=== PATIENT | female | born 1975 | race Caucasian/White ===

== ENCOUNTER 2021-09-24 04:02 | Inpatient (IN) ==
--- NOTE | 2021-09-24 04:27 | Emergency Department Note ---
History of Present Illness General Chief complaint: Illness Stated complaint: GENERALIZED ILLNESS, SHORT OF BREATH, NAUSEA Time Seen by Provider: 09/24/21 04:10 Source: patient History of Present Illness Maximum Pain Intensity: 8 46-year-old female presents emergency department states 2-day history of vomiting chest pain generalized illness and weakness. Patient states 2 days ago she woke up with vomiting she now is short of breath has lower chest and upper abdominal pain. Patient is on Subutex. Patient called EMS due to continued chest pain shortness of breath and generalized weakness. Patient is a very poor historian as to her presentation. Patient denies cardiac history. Home Medications Medication Instructions Recorded Confirmed Type buprenorphine 8 mg-naloxone 2 mg 1 film BUCCAL DAILY PRN 07/04/21 08/16/21 History sublingual film (Suboxone) citalopram 20 mg tablet 20 mg PO HS 07/10/21 08/16/21 History multivitamin 1 tab PO DAILY 07/10/21 08/16/21 History prednisone 10 mg tablet See Rx Instructions PO DAILY #20 08/16/21 08/16/21 Rx tab triamcinolone acetonide 0.1 % 1 applic TOPICAL DAILY #15 g 08/16/21 08/16/21 Rx topical cream Allergies Allergy/AdvReac Type Severity Reaction Status Date / Time No Known Allergies Allergy Verified 08/16/21 12:00 Past Med/Surg History Medical History Anemia Anxiety and depression Arthritis Carpal tunnel syndrome Episode of syncope 2013 UNSURE OF REASON History of cardiac murmur NO CARDS Hx of seizure disorder ? TYPE>ONLY A CHILD Jaw clicking Thyroid disease NO MEDS (PT UNSURE OF DETAILS) Surgical History History of back surgery "HARDWARE IN BACK FOR SCOLIOSIS" History of section X 2 History of tooth extraction Family History Mother Lung cancer Other No family history of adverse response to anesthesia Denies family history of Ovarian cancer Prostate cancer Myocardial infarction Breast cancer Colorectal cancer Social History Smoking Status: Current every day smoker Tobacco Type: Cigarettes Age Started Using Tobacco: 14; Cigarettes Per Day: 6-7 CIG DAILY *ADVISED; Second Hand Exposure: No; Hx Alcohol Use: No Hx Substance Use: Yes Last Used Substance Other:: LAST USED OVER 1 MONTH AGO "I QUIT" *ADVISED Preferred Language: Azerbaijani Communication Ability: Effective Visual Impairment: No Limitations Hearing Ability: Normal [employer] Operator Required: No Beliefs That Will Affect Care: None marital status: Single Current Living Situation: Significant Other current occupational status: employed Feels Safe at Home: Yes Childhood Exposure to Second-Hand Smoke: Yes Dental Care, Regularly: No Physical Activity Frequency: Does not Exercise Seatbelt Use: always Sunscreen Use: No Assistive Devices: Denture - Upper and Glasses Review of Systems A total of 10 systems reviewed and were otherwise negative Constitutional: + chills Respiratory: + dyspnea Cardiovascular: + chest pain Gastrointestinal: + abdominal pain, + nausea and + vomiting Genitourinary (Female): no urinary frequency Musculoskeletal: no back pain Endocrine: + fatigue Physical Exam Vital Signs Vital Signs - 24 hr 09/24/21 04:03 09/24/21 04:36 09/24/21 05:07 Temperature 36.5 C Temperature Source Oral Pulse Rate 102 H 96 H Pulse Rate [Finger] 98 H Pulse Rhythm Regular Pulse Rhythm [Finger] Pulse Strength [Finger] Respiratory Rate 16 25 H 22 Respiratory Effort / Characteristics Non-Labored Non-Labored Respiratory Depth Normal Normal Respiratory Pattern Regular Regular Blood Pressure 147/110 H Blood Pressure [Left Arm] 157/115 H Blood Pressure Mean 122 Blood Pressure Mean [Left Arm] 129 Blood Pressure Position Sitting Blood Pressure Position [Left Arm] Sitting Pulse Oximetry 85 L 93 96 Oxygen Delivery Method Room Air Nasal Cannula Nasal Cannula Oxygen Flow Rate 6 6 Sepsis Recent Fever Within 48 Hours No Sepsis New/Unexplained Change in Mental Status No Sepsis Action Taken by Nursing No Action Required 09/24/21 05:57 Temperature Temperature Source Pulse Rate Pulse Rate [Finger] 94 H Pulse Rhythm Pulse Rhythm [Finger] Regular Pulse Strength [Finger] Normal Respiratory Rate 22 Respiratory Effort / Characteristics Non-Labored Spontaneous Respiratory Depth Normal Respiratory Pattern Regular Blood Pressure Blood Pressure [Left Arm] 151/108 H Blood Pressure Mean Blood Pressure Mean [Left Arm] 122 Blood Pressure Position Blood Pressure Position [Left Arm] Sitting Pulse Oximetry 93 Oxygen Delivery Method Nasal Cannula Oxygen Flow Rate 6 Sepsis Recent Fever Within 48 Hours Sepsis New/Unexplained Change in Mental Status Sepsis Action Taken by Nursing VITAL SIGNS - Vital signs and nursing notes were reviewed. GENERAL -46-year-old female appearing her stated age who is in no acute distress. Slow to communicate and answer questions SKIN - Without rashes. Appears mildy ashen HEAD - NC/AT. EYES - PERRL with EOMI bilaterally. Sclera anicteric. Palpebral conjunctiva pink and moist with no injection noted. EARS - No deformities of external structures noted on gross examination bilaterally. No pain elicited with palpation of the tragus bilaterally. External auditory canals without discharge or otorrhea. Tympanic membranes pearly boogie without retraction or bulging. No fluid or purulent material visualized behind the TM. Handle of malleus, umbo, cone of light, pars tensa/flaccid all easily visualized. NOSE - Midline and without cyanosis. No epistaxis or purulent drainage noted. Septum midline without deviation or septal hematoma noted. MOUTH/OROPHARYNX - Without perioral cyanosis. Buccal mucosa pink and moist NECK - Neck with FROM. Supple LUNGS - Chest wall symmetric without accessory muscle use, intercostals retractions, or central cyanosis. Normal vesicular breath sounds CTA B/L. No wheezes, rales, or rhonchi appreciated. CARDIAC - RRR with S1/S2. No murmur, rubs, or gallops appreciated. Mild tenderness low sternum ABDOMEN - Abdominal contour soft without pulsations or visible masses. BS normoactive all four quadrants. No palpable masses, hepatosplenomegaly, or ascites noted. Mild tenderness in the epigastrium Back : Midline surgical scar EXTREMITIES - No clubbing or peripheral cyanosis. No pretibial edema present. +5/5 strength noted in UE/LE bilaterally. NEUROLOGIC - Cranial nerves II through XII grossly intact. Sensory intact to light touch throughout. PSYCH - A&Ox3 and cooperates fully with examiner. Alert but slow to respond to answer questions fully. Course Reevaluation(s) Reevaluation #1: Repeat examination at 5:39 AM the patient continues to complain of sharp centralized low sternal and upper abdominal pain with shortness of breath. Patient is on 6 L of oxygen with a pulse oximetry of 93 to 96%. Patient was given IV morphine, aspirin. CT is being reread of the chest for pulmonary embolism. Patient found to have an elevated D-dimer as well as an elevated troponin. Patient states to me with her significant other at bedside that initially it started out as vomiting and then significant lower abdominal chest pain with associated shortness of breath. Reevaluation #2: 0Patient continues to complain of pain, the case was discussed with the [facility] hospitalist for admission at 615, requested surgery was consulted, they will likely consult cardiology, we are waiting for the delta troponin as per initial 1 is positive, CT of the abdomen shows possibly cholecystitis, she was started on Zosyn, the case was also discussed with Aakash from surgery. Administered Medications Discontinued Medications Aspirin (Aspirin 81 Mg Chew) 324 mg PO NOW STA Stop: 09/24/21 05:31 Last Admin: 09/24/21 05:35 Dose: 324 mg Documented by: [id number] Ioversol (Optiray 320 125ml) 125 ml IV ONCE ONE Stop: 09/24/21 05:06 Last Admin: 09/24/21 05:06 Dose: 117 ml Documented by: [id number] Morphine Sulfate (Morphine Sulfate 4 Mg/Ml 1 Ml Carp\\Vial) 4 mg IV NOW STA Stop: 09/24/21 05:31 Last Admin: 09/24/21 05:36 Dose: 4 mg Documented by: [id number] Morphine Sulfate (Morphine Sulfate 2 Mg/Ml Carp) 2 mg IV NOW STA Stop: 09/24/21 06:25 Last Admin: 09/24/21 06:33 Dose: 2 mg Documented by: [id number] Ondansetron HCl (Ondansetron Inj 2 Mg/Ml 2 Ml Vial) 4 mg IV NOW STA Stop: 09/24/21 04:42 Last Admin: 09/24/21 04:45 Dose: 4 mg Documented by: [id number] Critical Care Time Critical Care Time: Yes Total Critical Care Time: 35 Critical care time is 35 minutes; chart review, multiple re-evals, discussion with family, discussion with hospitalist team; pt with possibility of cardiorespiratory compromise; discussion with surgical team Medical Decision Making Medical Records Attestation: I reviewed the patient's medical records. Home Medications Current Medication List: was personally reviewed by me Laboratory Data Attestation: I reviewed the patient's lab results. Result diagrams: 09/24/21 04:33 09/24/21 04:33 Lab Results 09/24/21 09/24/21 09/24/21 Range/Units 04:33 04:33 04:33 WBC 14.98 H (4.8-10.8) K/uL RBC 4.82 (4.2-5.4) M/uL Hgb 16.0 (12.0-16.0) g/dL Hct 45.6 (37-47) % MCV 94.6 (80-100) fL MCH 33.2 (25-34) pg MCHC 35.1 (32-36) g/dL RDW Std Deviation 49.3 H (36.4-46.3) fL RDW Coeff of Mark 14.3 (11.5-14.5) % Plt Count 260 (130-400) K/uL MPV 10.0 (7.4-10.4) fL Immature Gran % (Auto) 0.3 % Neut % (Auto) 79.7 % Lymph % (Auto) 11.3 % [place] % (Auto) 8.5 % Eos % (Auto) 0.1 % Baso % (Auto) 0.1 % Neut # (Auto) 11.93 H (1.4-6.5) K/uL Lymph # (Auto) 1.69 (1.2-3.4) K/uL [place] # (Auto) 1.28 H (0.11-0.59) K/uL Eos # (Auto) 0.01 (0-0.5) K/uL Baso # (Auto) 0.02 (0-0.2) K/uL Immature Gran # (Auto) 0.05 H (0.00-0.02) K/uL PT 11.3 (9.0-12.0) Seconds INR 1.1 (0.9-1.1) APTT 27.9 (21.0-31.0) Seconds PTT Ratio 1.0 D-Dimer 1130 H* (0-500) ug/L FEU Sodium 133 L (136-145) mmol/L Potassium 4.1 (3.5-5.1) mmol/L Chloride 101 (98-107) mmol/L Carbon Dioxide 22 (21-32) mmol/L Anion Gap 10 (3-11) BUN 13 (6-23) mg/dl Creatinine 0.65 (0.6-1.2) mg/dl Est Cr Clr Drug Dosing 101.6 ml/min Est GFR ( Amer) 122.5 ml/min Est GFR (Non-Af Amer) 105.7 ml/min BUN/Creatinine Ratio 20.0 (10-20) Glucose 169 H (70-99(Fasting)) mg/dl Calcium 10.0 (8.5-10.1) mg/dl Total Bilirubin 0.6 (0.2-1.0) mg/dl AST 46 H (13-39) U/L ALT 26 (7-52) U/L Alkaline Phosphatase 82 (34-104) U/L Troponin I High Sens 1904.5 H* (0-14) pg/ml Total Protein 7.3 (6.0-8.3) gm/dl Albumin 4.4 (3.4-5.0) gm/dl Globulin 2.9 (2.5-4.0) gm/dl Albumin/Globulin Ratio 1.5 (0.9-2) Lipase 7 L (11-82) U/L SARS-CoV-2, RNA, NAAT (NEGATIVE) 09/24/21 Range/Units 04:41 WBC (4.8-10.8) K/uL RBC (4.2-5.4) M/uL Hgb (12.0-16.0) g/dL Hct (37-47) % MCV (80-100) fL MCH (25-34) pg MCHC (32-36) g/dL RDW Std Deviation (36.4-46.3) fL RDW Coeff of Mark (11.5-14.5) % Plt Count (130-400) K/uL MPV (7.4-10.4) fL Immature Gran % (Auto) % Neut % (Auto) % Lymph % (Auto) % [place] % (Auto) % Eos % (Auto) % Baso % (Auto) % Neut # (Auto) (1.4-6.5) K/uL Lymph # (Auto) (1.2-3.4) K/uL [place] # (Auto) (0.11-0.59) K/uL Eos # (Auto) (0-0.5) K/uL Baso # (Auto) (0-0.2) K/uL Immature Gran # (Auto) (0.00-0.02) K/uL PT (9.0-12.0) Seconds INR (0.9-1.1) APTT (21.0-31.0) Seconds PTT Ratio D-Dimer (0-500) ug/L FEU Sodium (136-145) mmol/L Potassium (3.5-5.1) mmol/L Chloride (98-107) mmol/L Carbon Dioxide (21-32) mmol/L Anion Gap (3-11) BUN (6-23) mg/dl Creatinine (0.6-1.2) mg/dl Est Cr Clr Drug Dosing ml/min Est GFR ( Amer) ml/min Est GFR (Non-Af Amer) ml/min BUN/Creatinine Ratio (10-20) Glucose (70-99(Fasting)) mg/dl Calcium (8.5-10.1) mg/dl Total Bilirubin (0.2-1.0) mg/dl AST (13-39) U/L ALT (7-52) U/L Alkaline Phosphatase (34-104) U/L Troponin I High Sens (0-14) pg/ml Total Protein (6.0-8.3) gm/dl Albumin (3.4-5.0) gm/dl Globulin (2.5-4.0) gm/dl Albumin/Globulin Ratio (0.9-2) Lipase (11-82) U/L SARS-CoV-2, RNA, NAAT NEGATIVE (NEGATIVE) Imaging Data My Impression: Chest x-ray interpreted by me scoliosis thoracic orthopedic hardware present no obvious infiltrates no free air Radiologist's Impression: CT ABDOMEN/PELVIS With Contrast: Please see separatelydictated CT chest for additional findings. Distention of the gallbladder with cholelithiasis and pericholecystic fluid. Additional mild periportal edema. Findings maybe due to cholecystitis. Consider HIDAimaging if there is further concern. No other acute findingswithin the abdomen or pelvis. Radiologist: Ryan Rodriguez MD CT chest is negative for PE per radiology 5:57 AM ECG Data Attestation: I personally reviewed and interpreted this ECG as follows: Additional Comments: EKG interpreted by me normal sinus rhythm rate of 98 poor R wave progression in the precordium appears to be global T wave inversions that are nonspecific normal axis Hg #2 repeated due to clinical condition patient has normal sinus rhythm with a rate of 96 poor R wave progression in the precordium, continues to have T wave inversions anterolaterally, normal axis no obvious ST segment elevation or depression as interpreted by me MDM Narrative Medical decision making differential diagnosis includes pulmonary embolism, acute coronary syndrome, acute mi, perforated viscus, pneumonia, pancreatitis, derangement dehydration Review of labs elevated D-dimer however CT angio states no PE, elevated troponin, T wave inversions, will trend troponin, patient was given aspirin. We will currently hold off on IV heparin until further guidance as the patient may also have cholecystitis on CT abdomen pelvis and patient was started on IV Zosyn; consult hospitalist, consult to surgery; admit Impression & Plan Chest pain, Elevated troponin, Elevated d-dimer, Acute cholecystitis Discharge Plan Visit Data Chief Complaint: Illness Stated Complaint: GENERALIZED ILLNESS, SHORT OF BREATH, NAUSEA ED Provider: Refugio Ventura Discharge Problem: Chest pain, Elevated troponin, Elevated d-dimer, Acute cholecystitis Patient Disposition: Being Evaluated by Hospitalist Forms Stand Alone Forms: My [facility] Prescriptions Prescriptions: No Action buprenorphine-naloxone [Suboxone] 8-2 mg film 1 film buccal DAILY PRN (Reason: Pain) RF: 0 prednisone 10 mg tablet See Rx Instructions PO DAILY Qty: 20 RF: 0 triamcinolone acetonide 0.1 % cream 1 applic topical DAILY Qty: 15 RF: 1 multivitamin Tablet 1 tab PO DAILY RF: 0 citalopram 20 mg tablet 20 mg PO HS RF: 0 Referrals Referrals: Chloe Cuevas MD [Primary Care Provider] -
[2021-09-24] MEDS ORDERED: ONDANSETRON INJ 2 MG/ML 2 ML VIAL IV STA (04:41)
[2021-09-24 04:47] LABS: Basophils # (auto) 0.02 K/uL (0-0.2); Basophils % (auto) 0.1 %; Eosinophils # (auto) 0.01 K/uL (0-0.5); Eosinophils % (auto) 0.1 %; Hematocrit (blood only) 45.6 % (37-47); Immature Granulocytes # (auto) 0.05 K/uL (0.00-0.02); Immature Granulocytes % (auto) 0.3 %; Lymphocytes # (auto) 1.69 K/uL (1.2-3.4); Lymphocytes % (auto) 11.3 %; Mean Corpuscular Hemoglobin 33.2 pg (25-34); Mean Corpuscular Hgb Conc 35.1 g/dL (32-36); Mean Corpuscular Volume 94.6 fL (80-100); Monocytes # (auto) 1.28 K/uL (0.11-0.59); Monocytes % (auto) 8.5 %; Neutrophils # (auto) 11.93 K/uL (1.4-6.5); Neutrophils % (auto) 79.7 %; Platelet Count 260 K/uL (130-400); RDW Coefficient of Variation 14.3 % (11.5-14.5); RDW Standard Deviation 49.3 fL (36.4-46.3); Red Blood Count 4.82 M/uL (4.2-5.4); White Blood Count 14.98 K/uL (4.8-10.8)
[2021-09-24] MEDS ORDERED: OPTIRAY 320 125ml IV ONE (05:05)
[2021-09-24 05:07] LABS: INR 1.1 (0.9-1.1); Partial Thromboplastin Time 27.9 Seconds (21.0-31.0); Prothrombin Time 11.3 Seconds (9.0-12.0)
[2021-09-24 05:11] LABS: D Dimer 1130 ug/L FEU (0-500)
[2021-09-24 05:14] LABS: Albumin Globulin Ratio 1.5 (0.9-2); Albumin Level 4.4 gm/dl (3.4-5.0); Bilirubin,Total 0.6 mg/dl (0.2-1.0); Creatinine Clr Calc Pharmacy 101.6 ml/min; Est GFR (African American) 122.5 ml/min; Est GFR (Non-African American) 105.7 ml/min; Globulin 2.9 gm/dl (2.5-4.0); Potassium 4.1 mmol/L (3.5-5.1); Total Protein 7.3 gm/dl (6.0-8.3)
[2021-09-24 05:20] LABS: Troponin I High Sensitivity 1904.5 pg/ml (0-14)
[2021-09-24] MEDS ORDERED: ASPIRIN 81 MG CHEW PO STA (05:30)
[2021-09-24] MEDS ORDERED: MoRPHine SULFATE 4 MG/ML 1 ML CARP\\VIAL IV STA (05:30)
[2021-09-24] MEDS ORDERED: PIPERACILLIN/TAZOBACTAM 4.5 GM/120 ML BAG IV ONE (06:07)
[2021-09-24] MEDS ORDERED: PIPERACILL/TAZOBAC CONSULT ACTIVE PRN ×2 (06:07→08:27)
[2021-09-24] MEDS ORDERED: fentaNYL citrate 100 MCG/2 ML VIAL IV STA (06:08)
[2021-09-24] MEDS ORDERED: MoRPHine SULFATE 2 MG/ML CARP IV STA (06:24)
--- NOTE | 2021-09-24 06:31 | Surgery Consultation ---
Date of Consultation September 24, 2021 Assessment & Plan (1) Cholecystitis: The patient is being admitted by the medical service: -it appears as though the pt. may be suffering from acute cholecystitis -keep pt. npo -provide analgesics -provide antiemetics -hydrate with IVF -continue abx.--she has received zosyn in the ED -follow serial labs I discussed with the medical service: -due to the abnormal EKG and elevated troponin they are planning an trending the patient's cardiac enzymes and obtaining an echo to evaluate for -as the pt. was SOB and her pulse ox was noted to be low, there remains a concern that the patiemt may be suffering from a PE; they have placed the patient on an empiric heparin drip and ordered an echo as noted above Decision about cholecystectomy will be determined once further evaluation of her CP and SOB/hypoxia has vika completed Supervising Physician Co-Signing Physician Notes Dr. Wheatley suspect the patient has acute cholecystitis I do not think we need a HIDA scan Will await her medical work-up Likely proceed with laparoscopic cholecystectomy in the next 24 to 48 hours Unless medical work-up shows serious problems Would place the patient on IV antibiotics History of Present Illness Reason for Consultation: Abdominal pain History of Present Illness This is a 46-year-old female who presented to [facility] secondary to nonspecific abdominal pain as well as pleuritic chest pain that has been present for approximately 2 to 3 days. Patient notes that she has been having abdominal pain in the epigastric and right upper quadrant with associated nausea & vomiting. She notes that at times it is unrelated to meals but at other times the pain occurs approximately 20 or 30 minutes after eating. She denies any hematemesis. She denies any diarrhea. She also denies any fevers, shakes, chills. She has had prior abdominal surgeries in the form of 2 C- sections. In addition the patient reports that the abdominal pain tends to radiate up into her chest. She notes that she is somewhat short of breath with difficulty taking a deep breath and she notes some substernal chest pain as well. Today in the emergency department the patient had labs and imaging which I independently reviewed. She did have a CT scan abdomen pelvis that showed a distended gallbladder with some pericholecystic fluid and gallstones. A CT scan of the chest that did not show any pulmonary emboli. CBC revealed white blood cell count was 14.9. Hemoglobin, hematocrit, and platelet count were within the normal range. Chemistry profile showed sodium was 133. Potassium, BUN, and creatinine were normal. Her bilirubin, alkaline phosphatase and ALT were normal. There was a slight elevation of her AST at 46. Coagulation studies showed an elevated D-dimer at 1130. Her troponin was elevated at 1904. 8 COVID test was noted to be negative. EKG showed inverted T waves in leads I, 2, V3 through V6. At the time of my interview the patient appeared uncomfortable and contiued to have SOB and abdominal pain. Allergies Allergy/AdvReac Type Severity Reaction Status Date / Time No Known Allergies Allergy Verified 08/16/21 12:00 Home Medications Medication Instructions Recorded Confirmed Type citalopram 20 mg tablet 20 mg PO HS 07/10/21 09/24/21 History multivitamin 1 tab PO HS 07/10/21 09/24/21 History buprenorphine 8 mg-naloxone 2 mg 1.5 tab SUBLINGUAL QAM 09/24/21 09/24/21 History sublingual tablet Patient History Medical History Anemia Anxiety and depression Arthritis Carpal tunnel syndrome Episode of syncope 2012 UNSURE OF REASON History of cardiac murmur NO CARDS Hx of seizure disorder ? TYPE>ONLY A CHILD Jaw clicking Thyroid disease NO MEDS (PT UNSURE OF DETAILS) Surgical History History of back surgery "HARDWARE IN BACK FOR SCOLIOSIS" History of section X 2 History of tooth extraction Family History Mother Lung cancer Other No family history of adverse response to anesthesia Denies family history of Ovarian cancer Prostate cancer Myocardial infarction Breast cancer Colorectal cancer Social History Smoking Status: Current every day smoker Tobacco Type: Cigarettes Age Started Using Tobacco: 14; Cigarettes Per Day: 6-7 CIG DAILY *ADVISED; Second Hand Exposure: No; Hx Alcohol Use: No Hx Substance Use: Yes Last Used Substance Other:: LAST USED OVER 1 MONTH AGO "I QUIT" *ADVISED Preferred Language: Uzbek Communication Ability: Effective Visual Impairment: No Limitations Hearing Ability: Normal [place] Required: No Beliefs That Will Affect Care: None marital status: Single Current Living Situation: Significant Other current occupational status: employed Feels Safe at Home: Yes Childhood Exposure to Second-Hand Smoke: Yes Dental Care, Regularly: No Physical Activity Frequency: Does not Exercise Seatbelt Use: always Sunscreen Use: No Assistive Devices: Denture - Upper and Glasses Review of Systems Constitutional: no fever and no chills Eyes: no diplopia Ear, Nose, Mouth, Throat: no ear pain Respiratory: + dyspnea; no cough Cardiovascular: no chest pain Gastrointestinal: + abdominal pain, + nausea and + vomiting Genitourinary: no dysuria Musculoskeletal: + back pain (chronic) Integumentary: no rash Neurologic: no localized weakness Physical Exam Constitutional: well developed, well nourished and + acute distress appears unconfortable Eyes: no conjunctival abnormality Neck: trachea midline Respiratory: + labored breathing; does not use accessory muscles Cardiovascular: Rate/Rhythm: regular rate and regular rhythm Gastrointestinal (Abdomen): soft without distention, marked tenderness with palpation in RUQ Musculoskeletal: no calf tenderness Skin: no rashes Neurologic: moves all extremities Psychiatric: A+Ox3, euthymic affect Results & Data ([facility]) Vital Signs (Past 12 Hours) Vital Signs Temp Pulse Pulse Resp BP BP Pulse Ox 09/24/21 05:57 94 H 22 151/108 H 93 09/24/21 05:07 98 H 22 157/115 H 96 09/24/21 04:36 96 H 25 H 93 09/24/21 04:03 36.5 C 102 H 16 147/110 H 85 L PG Care Time/CCT Total # of Minutes Spent Total Time Spent with Patient: Total time spent is greater than 50% in coordination of care (as documented) at patient's floor/unit and/or counseling patient: Coding Level of Care Code 94657 Inpt Consult Level 5 Diagnoses Cholecystitis K81.9
[2021-09-24] MEDS ORDERED: SODIUM CHLORIDE 0.9% 1000ML 2,000 ML IV ONE (06:34)
[2021-09-24] MEDS ORDERED: Heparin IV Adult Wt-Based Standard WITH Bolus Protocol IV STA (06:46)
--- NOTE | 2021-09-24 06:48 | History & Physical Report ---
Date of Service September 24, 2021 Assessment & Plan (1) Chest pain: Plan: 46yo female presents with two days of nausea, vomiting, abdominal pain and chest discomfort. Elevation of HS troponin as well as diffuse TWI present on EKG. Chest pain is positional and pleuritic - possible myopericarditis. ASA given in ER. -Admit to PCU -Trend HS-trop q 6 hours -Check ESR and CRP -Check 2D echo -Cardiology consultation appreciated -Will initiate heparin gtt for now - await echo results for WMA, effusion, etc -Continue Oxygen - incentive spirometry - patient may need HFNC -Morphine PRN pain (2) Elevated troponin: Plan: As above, repeat HS-troponin pending. Story most fitting with myopericarditis - EKG changes could also be secondary to acute cholecystitis -Continue to trend -Check 2D echo -Telemetry monitoring (3) Acute cholecystitis: Plan: Afebrile. HD stable -Check RUQUS -Zosyn -General Surgery consultation appreciated -Morphine PRN pain -Zofran PRN nausea (4) Generalized anxiety disorder: Plan: Chronic. Stable -Continue Citalopram (5) Chronic pain: Plan: With acute pain - patient received Morphine in the ER with minimal improvement -Continue Subutex -Pain control as above Plan: F/E/N - LR at 100mL/hr x 2 liters, monitor electroltyes and replete as needed, NPO for now Ppx - Heparin gtt as above Code - Full Dispo - Admit to PCU History of Present Illness Chief Complaint: nausea, vomiting, abdominal pain, chest pain Primary Care Provider: Chloe Cuevas MD Azra Vega is a 46yo female with history of chronic back pain on Subutex, Depression/Anxiety presenting with two days of nausea with non-bloody/non-bilious vomiting, epigastric and RUQ abdominal pain as well as left sided chest pain. Symptoms began two days ago. No sick contacts. Her chest pain is located on the left chest. 7/10 in severity, sharp and stabbing. Pleuritic and positional - worse with laying flat and relieved with sitting upright. She has associated SOB as well as diaphoresis. Also with epigastric and RUQ abdominal pain, progressively worsening over the last two days. She has intermittent nausea, often after meals. Poor oral intake Also with occasional chills but denies fever, rigors, diarrhea. Upon arrival to the ER patient hypoxic to 85% on room air. She was placed on supplemental O2 by nasal cannula with improvement. Presently on 6L saturating 93%. Complaining of significant abdominal pain. Received Morphine 4mg IV with minimal improvement. Additional workup as below - elevated Ddimer as well as HS-trop x 1. EKG with diffuse TWI ER Course: Zofran, Zosyn, ASA, Morphine Allergies Allergy/AdvReac Type Severity Reaction Status Date / Time No Known Allergies Allergy Verified 08/16/21 12:00 Home Medications Medication Instructions Recorded Confirmed Type buprenorphine 8 mg-naloxone 2 mg 1 film BUCCAL DAILY PRN 07/04/21 09/24/21 History sublingual film (Suboxone) citalopram 20 mg tablet 20 mg PO HS 07/10/21 09/24/21 History multivitamin 1 tab PO DAILY 07/10/21 09/24/21 History prednisone 10 mg tablet See Rx Instructions PO DAILY #20 08/16/21 08/16/21 Rx tab triamcinolone acetonide 0.1 % 1 applic TOPICAL DAILY #15 g 08/16/21 09/24/21 Rx topical cream Past Med/Surg History Medical History Anemia Anxiety and depression Arthritis Carpal tunnel syndrome Episode of syncope 2012 UNSURE OF REASON History of cardiac murmur NO CARDS Hx of seizure disorder ? TYPE>ONLY A CHILD Jaw clicking Thyroid disease NO MEDS (PT UNSURE OF DETAILS) Surgical History History of back surgery "HARDWARE IN BACK FOR SCOLIOSIS" History of section X 2 History of tooth extraction Family History Mother Lung cancer Other No family history of adverse response to anesthesia Denies family history of Ovarian cancer Prostate cancer Myocardial infarction Breast cancer Colorectal cancer Social History Smoking Status: Current every day smoker Tobacco Type: Cigarettes Age Started Using Tobacco: 14; Cigarettes Per Day: 6-7 CIG DAILY *ADVISED; Second Hand Exposure: No; Hx Alcohol Use: No Hx Substance Use: Yes Last Used Substance Other:: LAST USED OVER 1 MONTH AGO "I QUIT" *ADVISED Preferred Language: Urdu Communication Ability: Effective Visual Impairment: No Limitations Hearing Ability: Normal Director Educational Radio Required: No Beliefs That Will Affect Care: None marital status: Single Current Living Situation: Significant Other current occupational status: employed Feels Safe at Home: Yes Childhood Exposure to Second-Hand Smoke: Yes Dental Care, Regularly: No Physical Activity Frequency: Does not Exercise Seatbelt Use: always Sunscreen Use: No Assistive Devices: Denture - Upper and Glasses Review of Systems Review of Systems: All systems reviewed & are unremarkable except as noted in HPI & below Physical Exam Physical Exam: General: patient ill in appearance, in moderate distress secondary to abdominal pain Skin: warm, dry, intact, no rashes or lesions HEENT: NC/AT, PERRL, EOMI, anicteric sclera, conjunctiva without injection, external ear normal to inspection and nontender, nares patent, moist mucus membranes, dentition intact, no oropharyngeal lesions, neck supple, trachea midline, no LAD, no thyromegaly, no JVD Heart: +S1/S2, regular, no m/r/g, reproducible chest wall pain with palpation Lungs: patient taking shallow breaths, +crackles in bilateral bases Large scar down middle of back Abd: +BS, soft, tender in epigastric and RUQ with voluntary guarding Ext: warm, 2+ pulses in UE/LE bilaterally, no clubbing/cyanosis or edema Neuro: nonfocal, patient AA&O x 4, speech slow, no facial droop, moving all extremities on command with equal strength 5/5 Results & Data Results & Data ([facility]) Vital Signs (Past 12 Hours) Vital Signs Temp Pulse Pulse Resp BP BP Pulse Ox 09/24/21 05:57 94 H 22 151/108 H 93 09/24/21 05:07 98 H 22 157/115 H 96 09/24/21 04:36 96 H 25 H 93 09/24/21 04:03 36.5 C 102 H 16 147/110 H 85 L Laboratory Results Laboratory Results WBC 14.98 K/uL (4.8-10.8) H 09/24/21 04:33 RBC 4.82 M/uL (4.2-5.4) 09/24/21 04:33 Hgb 16.0 g/dL (12.0-16.0) 09/24/21 04:33 Hct 45.6 % (37-47) 09/24/21 04:33 MCV 94.6 fL (80-100) 09/24/21 04:33 MCH 33.2 pg (25-34) 09/24/21 04:33 MCHC 35.1 g/dL (32-36) 09/24/21 04:33 RDW Std Deviation 49.3 fL (36.4-46.3) H 09/24/21 04:33 RDW Coeff of Mark 14.3 % (11.5-14.5) 09/24/21 04:33 Plt Count 260 K/uL (130-400) 09/24/21 04:33 MPV 10.0 fL (7.4-10.4) 09/24/21 04:33 Immature Gran % (Auto) 0.3 % 09/24/21 04:33 Neut % (Auto) 79.7 % 09/24/21 04:33 Lymph % (Auto) 11.3 % 09/24/21 04:33 [place] % (Auto) 8.5 % 09/24/21 04:33 Eos % (Auto) 0.1 % 09/24/21 04:33 Baso % (Auto) 0.1 % 09/24/21 04:33 Neut # (Auto) 11.93 K/uL (1.4-6.5) H 09/24/21 04:33 Lymph # (Auto) 1.69 K/uL (1.2-3.4) 09/24/21 04:33 [place] # (Auto) 1.28 K/uL (0.11-0.59) H 09/24/21 04:33 Eos # (Auto) 0.01 K/uL (0-0.5) 09/24/21 04:33 Baso # (Auto) 0.02 K/uL (0-0.2) 09/24/21 04:33 Immature Gran # (Auto) 0.05 K/uL (0.00-0.02) H 09/24/21 04:33 PT 11.3 Seconds (9.0-12.0) 09/24/21 04:33 INR 1.1 (0.9-1.1) 09/24/21 04:33 APTT 27.9 Seconds (21.0-31.0) 09/24/21 04:33 PTT Ratio 1.0 09/24/21 04:33 D-Dimer 1130 ug/L FEU (0-500) H* 09/24/21 04:33 Sodium 133 mmol/L (136-145) L 09/24/21 04:33 Potassium 4.1 mmol/L (3.5-5.1) 09/24/21 04:33 Chloride 101 mmol/L (98-107) 09/24/21 04:33 Carbon Dioxide 22 mmol/L (21-32) 09/24/21 04:33 Anion Gap 10 (3-11) 09/24/21 04:33 BUN 13 mg/dl (6-23) 09/24/21 04:33 Creatinine 0.65 mg/dl (0.6-1.2) 09/24/21 04:33 Est Cr Clr Drug Dosing 101.6 ml/min 09/24/21 04:33 Est GFR ( Amer) 122.5 ml/min 09/24/21 04:33 Est GFR (Non-Af Amer) 105.7 ml/min 09/24/21 04:33 BUN/Creatinine Ratio 20.0 (10-20) 09/24/21 04:33 Glucose 169 mg/dl (70-99(Fasting)) H 09/24/21 04:33 Calcium 10.0 mg/dl (8.5-10.1) 09/24/21 04:33 Total Bilirubin 0.6 mg/dl (0.2-1.0) 09/24/21 04:33 AST 46 U/L (13-39) H 09/24/21 04:33 ALT 26 U/L (7-52) 09/24/21 04:33 Alkaline Phosphatase 82 U/L (34-104) 09/24/21 04:33 Troponin I High Sens 1904.5 pg/ml (0-14) H* 09/24/21 04:33 Total Protein 7.3 gm/dl (6.0-8.3) 09/24/21 04:33 Albumin 4.4 gm/dl (3.4-5.0) 09/24/21 04:33 Globulin 2.9 gm/dl (2.5-4.0) 09/24/21 04:33 Albumin/Globulin Ratio 1.5 (0.9-2) 09/24/21 04:33 Lipase 7 U/L (11-82) L 09/24/21 04:33 SARS-CoV-2, RNA, NAAT NEGATIVE (NEGATIVE) 09/24/21 04:[address] Abdomen and Pelvis with Contrast - Per STAT rad - Distention of gallbladder with cholelithiasis and pericholecystic fluid. Additional mild periportal edema. Findings may be due to cholecystitis. Consider HIDA imaging if there is further concern. No other acute findings within the abdomen or pelvis. CTA Chest - Mildly limited exam given motion artifact and lack of coronal reformatted images. No visualized pulmonary embolism within the pulmonary outflow tract or immediate proximal branches. No consolidation. ECG Additional Comments: EKG with diffuse TWI Code Status & VTE Plan VTE Prophylaxis Plan VTE Prophylaxis will be ordered: Yes PG Care Time/CCT Total # of Minutes Spent Total Time Spent with Patient: Total time spent is greater than 50% in coordination of care (as documented) at patient's floor/unit and/or counseling patient: Coding Level of Care Code 20887 Initial Inpt Care Lvl 3 Diagnoses Chest pain R07.1 Chest pain type: chest pain on breathing Elevated troponin R77.8 Acute cholecystitis K81.0 Generalized anxiety disorder F41.1 Chronic pain G89.29 (1) Chest pain Chest pain type: chest pain on breathing Qualified Code(s): R07.1 - Chest pain on breathing
[2021-09-24] MEDS ORDERED: Heparin IV Adult Wt-Based Standard WITH Bolus Protocol IV SCH (07:15)
[2021-09-24] MEDS ORDERED: HEPARIN 25000 UNIT/500 ML D5W IV ONE (07:19)
[2021-09-24] MEDS ORDERED: HEPARIN SOD (PORCINE) 1000 UNIT/ML ONE (07:20)
--- NOTE | 2021-09-24 07:37 | CT Scan Report ---
CHEST CTA for PULMONARY ARTERIES CT DOSE: HISTORY: Lower Chest Pain, eval for PE TECHNIQUE: Multiaxial CT images of the chest were performed following the intravenous administration of contrast to evaluate the pulmonary arteries. Maximal intensity projection images were also obtaine d. A dose lowering technique was utilized adhering to the principles of ALARA. COMPARISON STUDY: None. FINDINGS: Retrograde opacification of contrast within the hepatic veins. Otherwise, the visualized li omar, spleen, and adrenal glands are unremarkable. No pericardial effusion. The heart is borderline en larged. Scoliosis and thoracic spinal fusion rods are noted. No mediastinal or hilar lymphadenopathy. Normal esophagus. Normal caliber thoracic aorta. Inadequate contrast within the thoracic aorta to as sess for a dissection. Mild respiratory motion artifact. However, no definite filling defects within the pulmonary arteries to suggest a pulmonary embolus. Incomplete opacification of some of the distal subsegmental pulmonary arteries due to the timing of contrast. No acute fractures within the visuali zed osseous structures. No pneumothorax. Mild emphysema. A 3 cm bleb noted within the right lung apex . Mild central bronchovascular thickening as well as interlobular septal thickening most pronounced w ithin the lung bases. This likely represents mild pulmonary edema. There is a trace left pleural effu ji. IMPRESSION: 1. No evidence for pulmonary embolus. 2. Mild cardiomegaly with a trace left pleural effusion and interlobular septal thickening consistent with mild pulmonary edema. ACT 112: Negative or not required by law. Electronically signed by: Nilo Aggarwal M.D. 09/24/2021 7:36 AM
--- NOTE | 2021-09-24 07:38 | XRay Report ---
XR chest 1V portable HISTORY: Lower Chest Pain COMPARISON: None. FINDINGS: No pneumothorax. No pleural effusions. The cardiac silhouette is normal in size. Scoliosis and thoracic spinal fusion rods are noted. There is diffuse interstitial thickening consistent with m ild pulmonary edema. No focal lung consolidations. IMPRESSION: Mild interstitial pulmonary edema. ACT 112: Negative or not required by law. Electronically signed by: Nilo Aggarwal M.D. 09/24/2021 7:37 AM
[2021-09-24] MEDS ORDERED: NITROGLYCERIN 2% OINTMENT 30GM TUBE EXT STA (08:15)
[2021-09-24] MEDS ORDERED: BUPRENORPHINE/NALOXONE 8/2 MG TAB SL PRN (08:27)
[2021-09-24] MEDS ORDERED: HEPARIN SODIUM/DEXTROSE 25,000 UNITS/500 ML BAG IV SCH ×2 (08:27→09:30)
[2021-09-24] MEDS ORDERED: ONDANSETRON INJ 2 MG/ML 2 ML VIAL IV PRN (08:27)
[2021-09-24] MEDS ORDERED: MoRPHine SULFATE 4 MG/ML 1 ML CARP\\VIAL IV PRN (08:27)
[2021-09-24] MEDS ORDERED: HEPARIN SOD (PORCINE) 1000 UNIT/ML IV ONE (09:00)
[2021-09-24] MEDS ORDERED: Heparin IV Adult Wt-Based Low-Dose *NO* Bolus Protocol ONE (09:18)
[2021-09-24] MEDS: MoRPHine SULFATE 2 MG/ML CARP IV PRN ×5 (09:20→22:50)
[2021-09-24 09:22] LABS: C Reactive Protein 3.39 mg/dl (0-0.5); Magnesium 1.8 mg/dl (1.7-2.4); Phosphorus 2.2 mg/dl (2.5-4.9)
--- NOTE | 2021-09-24 09:23 | Communication Note ---
Date of Service: September 24, 2021 Pt admitted the same day therefore will not be billing for this encounter. Discussed with Dr Gamino - planning on cardiac catheterization. Will reduce hepa rin IV drip to low dose given this is for possible ACS. Nitro paste deferred after discussion with Dr Gamino.
--- NOTE | 2021-09-24 09:31 | Pre Anesthesia Assessment ---
Date of Service September 24, 2021 Pre Sedation Assessment Vital Signs Temp Pulse Pulse Resp BP BP Pulse Ox 09/24/21 08:44 36.8 C 86 20 108/78 95 09/24/21 08:17 78 20 100/80 94 09/24/21 05:57 94 H 22 151/108 H 93 09/24/21 05:07 98 H 22 157/115 H 96 09/24/21 04:36 96 H 25 H 93 09/24/21 04:03 36.5 C 102 H 16 147/110 H 85 L Cardiovascular + regular rhythm Respiratory + respiratory effort normal Pre-Sedation Airway Assessment Smoking Status: Current every day smoker Hx Sleep Apnea: No Hx Difficult Intubation: No Short, Thick Neck: No Thyromental Distance: > or= 3.5 Finger Breadths Oral Cavity: + WNL Mallampati Class: III ASA: ASA3 Procedure Planning Contraindications for Sedation: none Current Medications Reviewed: Yes Notes The planned sedation has been discussed with the patient. Informed Consent was obtained. I have identified the patient, determined the appropriateness of sedation and have assessed the patient immediately prior to the procedure. All medicine(s) and interventions are by my order.
--- NOTE | 2021-09-24 10:20 | Cardiology Consultation ---
Date of Consultation September 24, 2021 Assessment & Plan (1) Elevated troponin: (2) Stress-induced cardiomyopathy: 1. Stress-induced cardiomyopathy: Her symptoms of discomfort or primarily epigastric in nature and highly suggestive of non coronary etiology. However, she clearly had a cardiac injury not related to an acute coronary syndrome. This is consistent with a stress-induced cardiomyopathy or tox at [facility]. I do not believe this is a chronic finding. Her EKG and biomarker elevation are all consistent with a recent or acute event. At this point treatment is supportive in nature. We need to monitor her volume status closely and mild diuresis is likely indicated at this point. I will prescribe low-dose beta-blockade today and when the opportunity presents add Ameya inhibition. We will continue to monitor on telemetry. No indication for systemic heparinization. With regard to her planned surgery, she would certainly be at high risk for perioperative cardiac complications given her decompensated state and acute left ventricular injury Ideally, we would wait for return of her LV function before proceeding with any elective surgery. If her surgery is deemed to be emergent than will need to monitor her hemodynamics closely and be especially cautious with respect to her overall volume status. History of Present Illness Reason for Consultation: Elevated troponin, abnormal EKG Requesting Physician: Shona Attending Physician: Win Nagel MD History of Present Illness The patient is a 46-year-old woman without a known history of cardiac disease who presented with symptoms epigastric discomfort. Apparently couple of days ag o the patient had some epigastric discomfort and some pleuritic symptoms. These seem to improvement yesterday patient symptoms returned and became progressive in nature. She had nausea and vomiting. The pain was more severe. She had trouble taking deep breaths due to worsening pain. She cannot lie flat due to worsening pain. He presented to the emergency room for an evaluation. She was noted to have an abnormal EKG and elevated cardiac biomarkers. She was started on heparin infusion. She was administered narcotics with some relief of her symptoms. A surgical evaluation was performed and she is suspected to have cholecystitis as well. The patient states that she has difficulty eating. This is due to longstanding GI process and discomfort. Allergies Allergy/AdvReac Type Severity Reaction Status Date / Time No Known Allergies Allergy Verified 08/16/21 12:00 Home Medications Medication Instructions Recorded Confirmed Type citalopram 20 mg tablet 20 mg PO HS 07/10/21 09/24/21 History multivitamin 1 tab PO HS 07/10/21 09/24/21 History buprenorphine 8 mg-naloxone 2 mg 1.5 tab SUBLINGUAL QAM 09/24/21 09/24/21 History sublingual tablet Patient History Medical History Anemia Anxiety and depression Arthritis Carpal tunnel syndrome Episode of syncope 2012 UNSURE OF REASON History of cardiac murmur NO CARDS Hx of seizure disorder ? TYPE>ONLY A CHILD Jaw clicking Thyroid disease NO MEDS (PT UNSURE OF DETAILS) Surgical History History of back surgery "HARDWARE IN BACK FOR SCOLIOSIS" History of section X 2 History of tooth extraction Family History Mother Lung cancer Other No family history of adverse response to anesthesia Denies family history of Ovarian cancer Prostate cancer Myocardial infarction Breast cancer Colorectal cancer Social History Smoking Status: Current every day smoker Tobacco Type: Cigarettes Age Started Using Tobacco: 14; Cigarettes Per Day: 10; Second Hand Exposure: Yes; Hx Alcohol Use: No Hx Substance Use: Yes Last Used Substance: Just Prior to Arrival Last Used Substance Other:: LAST USED OVER 1 MONTH AGO "I QUIT" *ADVISED Preferred Language: Urdu Communication Ability: Effective Visual Impairment: No Limitations Hearing Ability: Normal Tub Washer Required: No Beliefs That Will Affect Care: None marital status: Single Current Living Situation: Spouse current occupational status: employed Feels Safe at Home: Yes Childhood Exposure to Second-Hand Smoke: Yes Dental Care, Regularly: No Physical Activity Frequency: Does not Exercise Seatbelt Use: always Sunscreen Use: No Assistive Devices: Denture - Upper, Denture - Lower and Glasses Review of Systems Review of Systems: Per HPI. Some chronic back pain. History of scoliosis. Anorexia as described above. Physical Exam Physical Exam: She is alert and oriented x3. She was in discomfort. He had difficulty lying flat. She did answer all questions appropriately. HEENT: Sclerae are anicteric. Pupils are equal and reactive to light and accommodation. Extraocular movements were intact. Neuro: Cranial nerves intact Lungs: Poor inspiratory effort. No expiratory wheezing. Cardiac: The rhythm was regular. S1 and S2 were normal. There are no murmurs on examination. The PMI was not markedly displaced on palpation. Extremities: Patient has bilateral radial pulses that are equal in intensity. There is no evidence cyanosis or clubbing. There was no evidence of significant peripheral edema bilaterally. Skin: There are no rashes noted on examination today. Results & Data ([facility]) Vital Signs (Past 12 Hours) Vital Signs Temp Pulse Pulse Resp BP BP Pulse Ox 09/24/21 08:44 36.8 C 86 20 108/78 95 09/24/21 08:17 78 20 100/80 94 09/24/21 08:00 90 09/24/21 05:57 94 H 22 151/108 H 93 09/24/21 05:07 98 H 22 157/115 H 96 09/24/21 04:36 96 H 25 H 93 09/24/21 04:03 36.5 C 102 H 16 147/110 H 85 L Laboratory Results Abnormal Lab Results 09/24/21 09/24/21 09/24/21 04:33 04:33 04:33 WBC 14.98 H RBC 4.82 Hgb 16.0 Hct 45.6 MCV 94.6 MCH 33.2 MCHC 35.1 RDW Std Deviation 49.3 H RDW Coeff of Mark 14.3 Plt Count 260 MPV 10.0 Immature Gran % (Auto) 0.3 Neut % (Auto) 79.7 Lymph % (Auto) 11.3 [place] % (Auto) 8.5 Eos % (Auto) 0.1 Baso % (Auto) 0.1 Neut # (Auto) 11.93 H Lymph # (Auto) 1.69 [place] # (Auto) 1.28 H Eos # (Auto) 0.01 Baso # (Auto) 0.02 Immature Gran # (Auto) 0.05 H ESR PT 11.3 INR 1.1 APTT 27.9 PTT Ratio 1.0 D-Dimer 1130 H* Sodium 133 L Potassium 4.1 Chloride 101 Carbon Dioxide 22 Anion Gap 10 BUN 13 Creatinine 0.65 Est Cr Clr Drug Dosing 101.6 Est GFR ( Amer) 122.5 Est GFR (Non-Af Amer) 105.7 BUN/Creatinine Ratio 20.0 Glucose 169 H Calcium 10.0 Phosphorus Magnesium Total Bilirubin 0.6 AST 46 H ALT 26 Alkaline Phosphatase 82 Troponin I High Sens 1904.5 H* C-Reactive Protein Total Protein 7.3 Albumin 4.4 Globulin 2.9 Albumin/Globulin Ratio 1.5 Lipase 7 L Procalcitonin SARS-CoV-2, RNA, NAAT 09/24/21 09/24/21 09/24/21 04:33 04:33 04:41 WBC RBC Hgb Hct MCV MCH MCHC RDW Std Deviation RDW Coeff of Mark Plt Count MPV Immature Gran % (Auto) Neut % (Auto) Lymph % (Auto) [place] % (Auto) Eos % (Auto) Baso % (Auto) Neut # (Auto) Lymph # (Auto) [place] # (Auto) Eos # (Auto) Baso # (Auto) Immature Gran # (Auto) ESR 19 PT INR APTT PTT Ratio D-Dimer Sodium Potassium Chloride Carbon Dioxide Anion Gap BUN Creatinine Est Cr Clr Drug Dosing Est GFR ( Amer) Est GFR (Non-Af Amer) BUN/Creatinine Ratio Glucose Calcium Phosphorus 2.2 L Magnesium 1.8 Total Bilirubin AST ALT Alkaline Phosphatase Troponin I High Sens C-Reactive Protein 3.39 H Total Protein Albumin Globulin Albumin/Globulin Ratio Lipase Procalcitonin SARS-CoV-2, RNA, NAAT NEGATIVE 09/24/21 09/24/21 06:35 06:35 WBC RBC Hgb Hct MCV MCH MCHC RDW Std Deviation RDW Coeff of Mark Plt Count MPV Immature Gran % (Auto) Neut % (Auto) Lymph % (Auto) [place] % (Auto) Eos % (Auto) Baso % (Auto) Neut # (Auto) Lymph # (Auto) [place] # (Auto) Eos # (Auto) Baso # (Auto) Immature Gran # (Auto) ESR PT INR APTT PTT Ratio D-Dimer Sodium Potassium Chloride Carbon Dioxide Anion Gap BUN Creatinine Est Cr Clr Drug Dosing Est GFR ( Amer) Est GFR (Non-Af Amer) BUN/Creatinine Ratio Glucose Calcium Phosphorus Magnesium Total Bilirubin AST ALT Alkaline Phosphatase Troponin I High Sens 2102.4 H* C-Reactive Protein Total Protein Albumin Globulin Albumin/Globulin Ratio Lipase Procalcitonin < 0.05 SARS-CoV-2, RNA, NAAT Diagnostic Findings Chest CTA performed did not reveal any evidence of pulmonary embolus. There was a suggestion of mild pulmonary edema. CTA suggested mild pulmonary edema. Echocardiogram demonstrated severely reduced LV systolic function with ejection fraction in the range of 20%. She had relative sparing of the apical and basal segments with the mid ventricle being akinetic to dyskinetic. Mild dilation of left ventricle. Coronary angiography performed this morning revealed normal coronaries but elevated left ventricular end-diastolic pressure. ECG Additional Comments: Normal sinus rhythm with diffuse T-wave inversions. PG Care Time/CCT Total # of Minutes Spent Total Time Spent with Patient: Total time spent is greater than 50% in coordination of care (as documented) at patient's floor/unit and/or counseling patient: Coding Level of Care Code 18353 Inpt Consult Level 5 Diagnoses Elevated troponin R77.8 Stress-induced cardiomyopathy I51.81
[2021-09-24] MEDS ORDERED: HEPARIN (PORCINE) 1000 UNIT/ML 10 ML (CATH LAB USE ONLY) ONE (10:22)
[2021-09-24] MEDS ORDERED: fentaNYL citrate 100 MCG/2 ML VIAL ONE (10:22)
[2021-09-24] MEDS ORDERED: MIDAZOLAM HCL 1 MG/ML 2ML VIAL ONE (10:22)
[2021-09-24] MEDS ORDERED: niCARdipine HCL INJ 2.5 MG/ML 10 ML AMP ONE (10:22)
[2021-09-24] MEDS ORDERED: NITROGLYCERIN/D5W 100MCG/ML 20ML SYR ONE (10:23)
--- NOTE | 2021-09-24 10:37 | CT Scan Report ---
CT abd pelvis IV con only CLINICAL HISTORY: abd pain TECHNIQUE: Helical axial images of the abdomen and pelvis were obtained and displayed. Automated dose lowering techniques and/or adjustment according to patient size were utilized for this exam. This e xam was performed with intravenous contrast. CT DOSE: 604.39 mGy.cm COMPARISON: None available at the time of this dictation. FINDINGS: Lower chest: For findings above the diaphragm, please see CT chest performed same day. Liver: Unremarkable. No focal lesions are seen. Gallbladder and biliary tree: There is cholelithiasis and pericholecystic edema. The gallbladder wall is not definitely thickened, however. No intra- or extrahepatic biliary ductal dilation. Pancreas: Unremarkable, no focal lesions. Spleen: Unremarkable. Adrenals: Unremarkable. Kidneys and ureters: Unremarkable. Bladder: Limited evaluation due to underdistention. Reproductive organs: Unremarkable. Bowel: Diverticulosis is seen without evidence of diverticulitis. The appendix is normal. Lymph nodes Retroperitoneal: Unremarkable. Mesenteric: Unremarkable. Pelvic: Unremarkable. Peritoneum: Normal. Vessels: Unremarkable. Abdominal wall: Unremarkable. Bones: Unremarkable. IMPRESSION: Cholelithiasis, distention of the gallbladder, and pericholecystic fluid. Findings may represent acut e cholecystitis in the appropriate clinical setting. ACT 112: Negative or not required by law. Electronically signed by: Jg Honeycutt M.D. 09/24/2021 10:35 AM
--- NOTE | 2021-09-24 10:56 | Cardiac Catheterization ---
[facility] Data: [employer] Cardiac Status Clinical evaluation leading to the procedure CAD Presenation: Non STEMI Diagnostic Physicians Name: Mario Gamino MD Closure Device Recommendations: Medical Therapy and/or Counseling Cardiac Cath Procedure Full Procedure Date September 24, 2021 Pre-Procedure Diagnosis Pre-Procedure Diagnosis: Non STEMI and Cardiomyopathy AUC Score AUC Score: 8 Post-Procedure Diagnosis Post-Procedure Diagnosis: Normal Coronary Arteries Procedure(s) Performed Procedure(s) Performed: Coronary Angiography and Left Heart Cath Best Worker Mario Gamino MD Manager Asset(s) none Estimated Blood Loss Estimated Blood Loss: 7cc Medication(s) Medication(s): Fentanyl, Heparin, Lidocaine 1%, Nicardipine, Nitroglycerin and Versed Summary of Findings Procedure performed: Left heart catheterization, selective coronary angiography Staff structurer: Mario Gamino MD Indication: The patient is a 46-year-old woman who presented with epigastric pain. She had an abnormal EKG and elevated cardiac biomarkers. Procedure in detail: The patient was informed of the risks benefits and alternatives to the intended procedure, he understood such and wished to proceed. She was taken to the cardiac catheterization suite in a fasting state. Conscious sedation was administered per protocol and the patient was monitored electrocardiographically throughout today's procedure. The right wrist area was prepped and draped in usual sterile fashion. This area was anesthetized using subcutaneous administration of a lidocaine solution. The right radial artery was then accessed using Seldinger technique, and a arterial sheath was placed at this sit e over a guidewire. The sheath was used to facilitate passage of the cardiac catheter for coronary angiography and left heart catheterization. Coronary angiogram was then obtained in multiple orthogonal views prior to removal of the catheter. At the conclusion of the procedure the sheath was removed and hemostasis was achieved at the access site using manual pressure. The patient tolerated procedure well, there were no immediate complications. Equipment used: 5 [place] 4 Findings: Coronary angiography Left main: Left main coronary artery is normal in size and caliber and bifurcat es normally into the left anterior descending and left circumflex. No disease Left anterior descending colon left anterior descending was a large vessel but failed to reach the apex. It produced a large first diagonal branch and 2 medium additional diagonal branches. No significant disease in this distribution. Left circumflex: Left circumflex was a large vessel that did reach the apex. It produced a small OM1 and OM 2 and a very large ongoing OM 3 vessel with a small ongoing AV groove vessel. No significant disease in this vessel Right coronary artery: The right coronary was a dominant vessel producing a large branching posterior descending artery. There was also a large posterolateral branch. No significant disease in this vessel. Impression: Right dominant coronary system No evidence of aortic stenosis No obstructive coronary disease Elevated left ventricular end-diastolic pressure Hemodynamics Rest Ao:: 92/69 mmHg Final Ao: 104/75 mmHg LV: 105/13 mmHg LVEDP 26 mmHg Recommendations Recommendations: Medical Therapy and/or Counseling Specimens Specimens: None Radiation Exposure (mGy) 732 Contrast (mls) 25 Procedural Complication(s) None Disposition PCU I attest to the content of the Intraoperative Record and any orders documented therein. Any exceptions are noted below. [facility] Card Cath Procedure Codes Cardiac Catheterization Procedure 1: Cardiovascular Cath Procedures: 87292 Coronaries and LHC (+/-LV) Moderate Sedation Procedure 1: Sedation/Anesthesia: 64603 Mod Sedation by the same physician;Init15 Min Child Age 5 & Up Procedure 2: Sedation/Anesthesia: 29277 Mod Sedation by the same physician; Ea [id number] Minutes PG Care Time/CCT Total # of Minutes Spent Total Time Spent with Patient: Total time spent is greater than 50% in coordination of care (as documented) at patient's floor/unit and/or counseling patient:
--- NOTE | 2021-09-24 10:58 | Post Anesthesia Assessment ---
Date of Service September 24, 2021 Post Sedation Assessment Vital Signs Temp Pulse Pulse Resp BP BP Pulse Ox 09/24/21 08:44 36.8 C 86 20 108/78 95 09/24/21 08:17 78 20 100/80 94 09/24/21 08:00 90 09/24/21 05:57 94 H 22 151/108 H 93 09/24/21 05:07 98 H 22 157/115 H 96 09/24/21 04:36 96 H 25 H 93 09/24/21 04:03 36.5 C 102 H 16 147/110 H 85 L Recovery Score Activity: Moves 4 extremities Respiration: Deep Breath/Cough Circulation: +/-20% PreAnes Value Consciousness: Arouseable (by name) Oxygen Saturation: O2 needed for >90% Discharge Sedation Level of Care: Fast Track Phase II Post Sedation Plan On clinical assessment, the patient appears to have tolerated the sedation without complications. Patient is recovering as anticipated. Patient will continue to be monitored by nursing and may be discharged when sedation discharge criteria are met per below protocol. Upon Completions of procedure up to 15 minutes continue every 5 minute vital signs and the P.A.R. score; then discharge to a Phase I or Fast Track to Phase II per the following guidelines: * Discharge Patient to appropriate Phase II area if PAR is 8 or greater or return to pre- procedure baseline. The post - procedure orders will be as directed. * If PAR score is less than 8 or not return to pre-procedure baseline then patient will follow Phase I monitoring till PAR is reached for Phase II. The Phase I may be done in procedure room or may call to secure a Phase I area. * If naloxone or flumazenil are used for reversal, hold in Phase I for continued monitoring from when last reversal dose was given for a minimum of 60 minutes or longer pending the nurse and/or physician discretion of patient condition before discharge to Phase II. Please call the Sedation Physician to re-evaluate and complete post-note for discharge to Phase II area. Do NOT discharge from procedure sedation or Phase 1 until post- sedation evaluation note is complete by procedure /sedation MD Sedation Discharge Instructions to be given to the patient at discharge to home.
--- NOTE | 2021-09-24 11:24 | XCELERA ---
[id number]
[2021-09-24] MEDS: BUPRENORPHINE/NALOXONE 8/2 MG TAB SL SCH (11:29)
[2021-09-24] MEDS ORDERED: FUROSEMIDE INJ 20 MG/2 ML VIAL IV STA (11:40)
[2021-09-24] MEDS: PIPERACILLIN/TAZOBACTAM 3.375 GM in DEXTROSE 5% 100 ML IV SCH ×2 (11:59→19:44)
[2021-09-24] MEDS ORDERED: NITROGLYCERIN 2% OINTMENT 30GM TUBE EXT SCH (12:00)
[2021-09-24] MEDS: carvediloL 3.125 MG TAB PO SCH ×2 (13:14→19:53)
[2021-09-24 13:56] LABS: Amphetamines+Metham, Urine Neg (Neg); Barbiturates, Urine Neg (Neg); Benzodiazepine, Urine Pos (Neg); Cocaine, Urine Neg (Neg); MDMA (Ecstacy), Urine Neg (Neg); Methadone, Urine Neg (Neg); Opiate, Urine Pos (Neg); Phencyclidine, Urine Neg (Neg)
--- NOTE | 2021-09-24 14:19 | Electrocardiogram Report ---
Test Reason : Blood Pressure : / mmHG Vent. Rate : 098 BPM Atrial Rate : 098 BPM P-R Int : 154 ms QRS Dur : 074 ms QT Int : 384 ms P-R-T Axes : 069 082 218 degrees QTc Int : 490 ms Sinus rhythm with Premature atrial complexes Possible Left atrial enlargement T wave abnormality, consider inferior ischemia T wave abnormality, consider anterolateral ischemia Abnormal ECG No previous ECGs available Confirmed by Mario Gamino ([id number]) on 09/24/2021 2:19:15 PM Referred By: REFERRED SELF Confirmed By:Rahat Gamino
--- NOTE | 2021-09-24 14:19 | Electrocardiogram Report ---
Test Reason : Blood Pressure : / mmHG Vent. Rate : 096 BPM Atrial Rate : 096 BPM P-R Int : 156 ms QRS Dur : 076 ms QT Int : 388 ms P-R-T Axes : 066 079 213 degrees QTc Int : 490 ms Normal sinus rhythm Possible Left atrial enlargement T wave abnormality, consider inferior ischemia T wave abnormality, consider anterolateral ischemia Abnormal ECG When compared with ECG of 24-SEP-2021 04:10, (unconfirmed) Premature atrial complexes are no longer Present Confirmed by Mario Gamino ([id number]) on 09/24/2021 2:18:57 PM Referred By: REFERRED SELF Confirmed By:Rahat Gamino
--- NOTE | 2021-09-24 15:28 | Ultrasound Report ---
US liver HISTORY: 46 years-old Female ?Cholecystitis acute right upper quadrant abdominal pain COMPARISON: CT of same day TECHNIQUE: Multiple real-time sonographic images of the abdominal right upper quadrant were obtained assessing grayscale appearance and color flow FINDINGS: The pancreas is not diagnostically visualized. The liver measures 20 cm in length. No hepatic mass id entified. The gallbladder is distended with layering cholelithiasis. The wall is mildly thickened at 4 mm. Trace pericholecystic fluid. The sonographic Lee sign was not reported. The data specialist does report right upper quadrant abdominal tenderness. The common bile duct measures 7 mm. The imaged right kidney is unremarkable without hydronephrosis. IMPRESSION: 1. Cholelithiasis with sonographic findings suggestive of acute cholecystitis. 2. The common bile duct measures within the upper limits of normal. No intrahepatic biliary ductal di lation. ACT 112: Negative or not required by law. The above report was generated using voice recognition software. It may contain grammatical, syntax o r spelling errors. Electronically signed by: Avery Rosenthal M.D. 09/24/2021 3:26 PM
[2021-09-24] MEDS: CITALOPRAM 20 MG TAB PO SCH (19:54)
--- NOTE | 2021-09-24 21:35 | Communication Note ---
Date of Service: September 24, 2021 Messaged by nursing about inadequate pain control. IV morphine not lasting long enough. Reviewed chart hx. Here for likely stress-induced cardiomyopathy and acute cholecystitis. Cardiac catheterization did not show obstruction CAD. Patient is on chronic Subutex. Added PO oxycodone 5mg q6h prn for mod-severe pain. IV morphine 2mg q3h prn for breakthrough pain only. Removed previous prn order for IV morphine 4mg. 2:39AM Per chart review, I noticed patient has BP of 88/55 and O2 sat of 66 documented at 22:55. Vitals rechecked at 2:40AM and are 103/70. 98% sat on room air. Per nursing the previous documented 66% was in error and was supposed to be 92%.
[2021-09-24] MEDS: ACETAMINOPHEN 500 MG TAB PO PRN (21:48)
[2021-09-24] MEDS: oxyCODONE HCL IR 5 MG TAB (IMMEDIATE RELEASE) PO PRN (22:21)
[2021-09-25] MEDS: MoRPHine SULFATE 2 MG/ML CARP IV PRN ×4 (02:21→20:13)
[2021-09-25] MEDS: PIPERACILLIN/TAZOBACTAM 3.375 GM in DEXTROSE 5% 100 ML IV SCH ×3 (04:23→19:46)
[2021-09-25] MEDS: oxyCODONE HCL IR 5 MG TAB (IMMEDIATE RELEASE) PO PRN ×3 (04:23→19:35)
[2021-09-25 07:56] LABS: Basophils # (auto) 0.03 K/uL (0-0.2); Basophils % (auto) 0.3 %; Eosinophils # (auto) 0.12 K/uL (0-0.5); Eosinophils % (auto) 1.2 %; Hematocrit (blood only) 43.9 % (37-47); Hemoglobin 14.8 g/dL (12.0-16.0); Immature Granulocytes # (auto) 0.03 K/uL (0.00-0.02); Immature Granulocytes % (auto) 0.3 %; Lymphocytes # (auto) 4.15 K/uL (1.2-3.4); Lymphocytes % (auto) 41.7 %; Mean Corpuscular Hemoglobin 32.7 pg (25-34); Mean Corpuscular Hgb Conc 33.7 g/dL (32-36); Mean Corpuscular Volume 96.9 fL (80-100); Mean Platelet Volume 10.4 fL (7.4-10.4); Monocytes # (auto) 1.03 K/uL (0.11-0.59); Monocytes % (auto) 10.3 %; Neutrophils % (auto) 46.2 %; Platelet Count 242 K/uL (130-400); RDW Coefficient of Variation 14.3 % (11.5-14.5); RDW Standard Deviation 50.6 fL (36.4-46.3); Red Blood Count 4.53 M/uL (4.2-5.4); White Blood Count 9.96 K/uL (4.8-10.8)
--- NOTE | 2021-09-25 08:01 | Surgery Progress Note ---
Date of Service September 25, 2021 Assessment & Plan (1) Cholecystitis: Plan: Patient appears to be doing better Would continue to try to advance diet IV antibiotics for now/then would continue her on oral antibiotics-possibly Augmentin Medical management for now Admission and Anticipated Discharge Date Admission Date: September 24, 2021 Subjective Patient sitting up in bed Excited about her clear liquid diet Affect seems to be normal with no complaints She does not want any more morphine She wants to go home Physical Exam Physical Exam: Awake alert No distress Does not appear to have abdominal pain Results & Data ([facility]) Vital Signs (Past 12 Hours) Vital Signs Temp Pulse Pulse Resp BP Pulse Ox 09/25/21 07:30 36.6 C 61 18 120/83 98 09/25/21 02:47 37 C 75 18 103/70 98 09/24/21 22:55 36.8 C 98 H 20 88/55 L 92 09/24/21 22:20 70 PG Care Time/CCT Total # of Minutes Spent Total Time Spent with Patient: Total time spent is greater than 50% in coordination of care (as documented) at patient's floor/unit and/or counseling patient: Coding Level of Care Code 08795 Subseq Hosp Care Lvl 2 Diagnoses Cholecystitis K81.9
[2021-09-25] MEDS: carvediloL 3.125 MG TAB PO SCH (08:18)
[2021-09-25] MEDS: BUPRENORPHINE/NALOXONE 8/2 MG TAB SL SCH (08:18)
[2021-09-25 08:25] LABS: Albumin Globulin Ratio 1.6 (0.9-2); BUN Creatinine Ratio 16.9 (10-20); Bilirubin Direct 0.1 mg/dl (0-0.2); Bilirubin,Total 0.5 mg/dl (0.2-1.0); Calcium 9.4 mg/dl (8.5-10.1); Creatinine Clr Calc Pharmacy 94.2 ml/min; Est GFR (African American) 117.6 ml/min; Est GFR (Non-African American) 101.4 ml/min; Globulin 2.5 gm/dl (2.5-4.0); Potassium 3.9 mmol/L (3.5-5.1); Total Protein 6.5 gm/dl (6.0-8.3)
--- NOTE | 2021-09-25 13:27 | Hospitalist Progress Note ---
Date of Service September 25, 2021 Assessment & Plan (1) Acute cholecystitis: Plan: Afebrile. HD stable. Appears much improved today. - Continue IV Zosyn - Advance diet per surgery recommendations - Follow up with surgery on discharge for eventual cholecystectomy once stress induced cardiomyopathy resolved (2) Acute HFrEF (heart failure with reduced ejection fraction): Plan: Lasix 20mg IV given 09/24 Appears to be euvolemic currently, will defer further diuretics Continue fluid restriction 1500ml Strict I&Os - output not being reported, daily weights - increased weight but given improved exam not overly concerning (3) Stress-induced cardiomyopathy: Plan: Continue carvedilol per cardiology recommendations Follow up with cardiology with repeat TTE as outpatient (4) Generalized anxiety disorder: Plan: Chronic. Stable -Continue Citalopram (5) Chronic pain: Plan: With acute pain - patient received Morphine in the ER with minimal improvement -Continue Subutex -Continue morphine for pain control Plan: VTE Prophylaxis - Low risk, SCDs Code - Full Dispo - Continue on to PCU Admission and Anticipated Discharge Date Admission Date: September 24, 2021 Subjective Patient feels much improved today. Asking about discharge. No shortness of breath or chest pain. Continued abdominal pain but much improved. Tolerating increase in diet without nausea or vomiting. No fever or chills. Review of Systems Review of Systems: All systems reviewed & are unremarkable except as noted in Subjective Physical Exam Constitutional: WD/WN, vitals as above Respiratory: normal respiratory effort, lungs clear to auscultation Cardiovascular: RRR, no murmur, no edema Gastrointestinal (Abdomen): Inspection/Auscultation: normal bowel sounds Percussion/Palpation: + abdomen tender (RUQ without guarding or rebound tenderness) and abdomen soft; no guarding and abdomen not rigid Musculoskeletal: no cyanosis or clubbing, extremities motor strength 5/5 Skin: no rashes, warm and dry Neurologic: moves all extremities and awake; not confused Psychiatric: A+Ox3, euthymic affect Results & Data Results & Data ([facility]) Vital Signs (Past 12 Hours) Vital Signs Temp Pulse Resp BP Pulse Ox 09/25/21 12:04 36.7 C 61 18 96/61 L 97 09/25/21 09:07 61 14 99/62 L 09/25/21 07:30 36.6 C 61 18 120/83 98 09/25/21 02:47 37 C 75 18 103/70 98 PG Care Time/CCT Total # of Minutes Spent Total Time Spent with Patient: Total time spent is greater than 50% in coordination of care (as documented) at patient's floor/unit and/or counseling patient: Coding Level of Care Code 21261 Subseq Hosp Care Lvl 2 Diagnoses Acute cholecystitis K81.0 Generalized anxiety disorder F41.1 Chronic pain G89.29 Acute HFrEF (heart failure with reduced ejection fraction) I50.21 Stress-induced cardiomyopathy I51.81
--- NOTE | 2021-09-25 15:40 | Electrocardiogram Report ---
Test Reason : Blood Pressure : / mmHG Vent. Rate : 066 BPM Atrial Rate : 066 BPM P-R Int : 160 ms QRS Dur : 084 ms QT Int : 444 ms P-R-T Axes : 073 090 222 degrees QTc Int : 465 ms Normal sinus rhythm Rightward axis Abnormal ECG When compared with ECG of 24-SEP-2021 05:40, No significant change was found Confirmed by Mario Gamino ([id number]) on 09/25/2021 3:40:05 PM Referred By: REFERRED SELF Confirmed By:Rahat Gamino
--- NOTE | 2021-09-25 18:22 | Cardiology Progress Note ---
Date of Service September 25, 2021 Assessment & Plan (1) Elevated troponin: (2) Stress-induced cardiomyopathy: Plan: 1. Stress-induced cardiomyopathy: She is severely reduced LV systolic function. She had elevated end-diastolic pressures at the time of her catheterization. She did receive a diuretic yesterday and actually her lung examination is normal today. She seems to be tolerating low-dose carvedilol albeit with a element of bradycardia. I will try a slightly higher dose given her ventricular ectopy and cardiomyopathy. Blood pressure is on the lower side. I am not confident we will be able to at Ameya inhibition as well. However, I think beta-blockade is most beneficial. She is likely to recover her LV function over time. Will continue to monitor on telemetry Will liberalize her activity yesterday and monitor her for any additional symptoms. Possible discharge tomorrow Admission and Anticipated Discharge Date Admission Date: September 24, 2021 Subjective Overall the patient felt better today but is currently suffering from severe back pain. She states this is a chronic problem for which he takes narcotics. She is able to eat some foods today including clear liquids. She ate some dinner and did vomit. However she was able to keep down some potatoes. She has not report breathing difficulty today. She reported some fatigue when getting back and forth to the commode. Review of Systems Review of Systems: Per HPI Physical Exam Physical Exam: She is alert and oriented x3. Mood affect appear normal. She answered all questions appropriately. HEENT: Sclerae are anicteric. Pupils are equal and reactive to light and accommodation. Extraocular movements were intact. Neuro: Cranial nerves intact Lungs: Lungs are clear to auscultation bilaterally. There are no rales wheezes or rhonchi. She has normal respiratory effort without use of accessory muscles. There is normal pulmonary excursion. Cardiac: The rhythm was regular. S1 and S2 were normal. There are no murmurs on examination. The PMI was not markedly displaced on palpation. Extremities: Patient has bilateral radial pulses that are equal in intensity. There is no evidence cyanosis or clubbing. There was no evidence of significant peripheral edema bilaterally. Skin: There are no rashes noted on examination today. Results & Data ([facility]) Vital Signs (Past 12 Hours) Vital Signs Temp Pulse Resp BP Pulse Ox 09/25/21 15:55 36.6 C 55 L 18 112/75 98 09/25/21 12:04 36.7 C 61 18 96/61 L 97 09/25/21 09:07 61 14 99/62 L 09/25/21 07:30 36.6 C 61 18 120/83 98 Laboratory Results Abnormal Lab Results 09/25/21 09/25/21 07:21 07:21 WBC 9.96 RBC 4.53 Hgb 14.8 Hct 43.9 MCV 96.9 MCH 32.7 MCHC 33.7 RDW Std Deviation 50.6 H RDW Coeff of Mark 14.3 Plt Count 242 MPV 10.4 Immature Gran % (Auto) 0.3 Neut % (Auto) 46.2 Lymph % (Auto) 41.7 Dickinson % (Auto) 10.3 Eos % (Auto) 1.2 Baso % (Auto) 0.3 Neut # (Auto) 4.60 Lymph # (Auto) 4.15 H Dickinson # (Auto) 1.03 H Eos # (Auto) 0.12 Baso # (Auto) 0.03 Immature Gran # (Auto) 0.03 H Sodium 137 Potassium 3.9 Chloride 103 Carbon Dioxide 27 Anion Gap 7 BUN 12 Creatinine 0.71 Est Cr Clr Drug Dosing 94.2 Est GFR ( Amer) 117.6 Est GFR (Non-Af Amer) 101.4 BUN/Creatinine Ratio 16.9 Glucose 89 Calcium 9.4 Total Bilirubin 0.5 Direct Bilirubin 0.1 AST 44 H ALT 36 Alkaline Phosphatase 73 Total Protein 6.5 Albumin 4.0 Globulin 2.5 Albumin/Globulin Ratio 1.6 PG Care Time/CCT Total # of Minutes Spent Total Time Spent with Patient: Total time spent is greater than 50% in coordination of care (as documented) at patient's floor/unit and/or counseling patient: Coding Level of Care Code 32999 Subseq Hosp Care Lvl 2 Diagnoses Elevated troponin R77.8 Stress-induced cardiomyopathy I51.81
[2021-09-25] MEDS: ACETAMINOPHEN 500 MG TAB PO PRN (19:06)
[2021-09-25] MEDS: carvediloL 6.25 MG TAB PO SCH (19:46)
[2021-09-25] MEDS: CITALOPRAM 20 MG TAB PO SCH (20:13)
[2021-09-25] MEDS ORDERED: MELATONIN 3 MG TAB PO PRN (20:33)
--- NOTE | 2021-09-25 23:00 | Communication Note ---
Date of Service: September 25, 2021 Messaged by nursing about patient asking about muscle relaxant which her had been taking unofficially as outpatient. Assessed patient and will not be adding muscle relaxant at this time especially in context of patient on subutex (there is only subutex on her pdmp) and lower suspicion for withdrawal from muscle relaxants; patient agrees w/ plan. Continue PO oxycodone q6h prn for now w/ morphine IV for breakthrough. Added melatonin for sleep.
[2021-09-26] MEDS: PIPERACILLIN/TAZOBACTAM 3.375 GM in DEXTROSE 5% 100 ML IV SCH ×2 (03:52→11:51)
[2021-09-26] MEDS: oxyCODONE HCL IR 5 MG TAB (IMMEDIATE RELEASE) PO PRN (04:54)
[2021-09-26] MEDS: ACETAMINOPHEN 500 MG TAB PO PRN (04:56)
[2021-09-26 07:26] LABS: Basophils # (auto) 0.03 K/uL (0-0.2); Basophils % (auto) 0.3 %; Eosinophils % (auto) 1.2 %; Hematocrit (blood only) 39.5 % (37-47); Hemoglobin 13.4 g/dL (12.0-16.0); Immature Granulocytes # (auto) 0.02 K/uL (0.00-0.02); Immature Granulocytes % (auto) 0.2 %; Lymphocytes # (auto) 2.71 K/uL (1.2-3.4); Lymphocytes % (auto) 31.3 %; Mean Corpuscular Hemoglobin 32.2 pg (25-34); Mean Corpuscular Hgb Conc 33.9 g/dL (32-36); Mean Platelet Volume 10.2 fL (7.4-10.4); Monocytes # (auto) 1.16 K/uL (0.11-0.59); Monocytes % (auto) 13.4 %; Neutrophils # (auto) 4.63 K/uL (1.4-6.5); Neutrophils % (auto) 53.6 %; Platelet Count 250 K/uL (130-400); RDW Standard Deviation 48.3 fL (36.4-46.3); Red Blood Count 4.16 M/uL (4.2-5.4); White Blood Count 8.65 K/uL (4.8-10.8)
[2021-09-26] MEDS: carvediloL 6.25 MG TAB PO SCH (07:53)
[2021-09-26 08:07] LABS: Albumin Globulin Ratio 1.6 (0.9-2); Albumin Level 3.6 gm/dl (3.4-5.0); BUN Creatinine Ratio 15.2 (10-20); Bilirubin,Total 0.4 mg/dl (0.2-1.0); Calcium 9.1 mg/dl (8.5-10.1); Creatinine Clr Calc Pharmacy 101.5 ml/min; Est GFR (African American) 121.9 ml/min; Est GFR (Non-African American) 105.2 ml/min; Globulin 2.3 gm/dl (2.5-4.0); Potassium 3.6 mmol/L (3.5-5.1); Total Protein 5.9 gm/dl (6.0-8.3)
[2021-09-26] MEDS: BUPRENORPHINE/NALOXONE 8/2 MG TAB SL SCH (10:14)
--- NOTE | 2021-09-26 11:30 | Discharge Summary ---
Date of Service September 26, 2021 Admission HPI Per Admitting Provider Azra Vega is a 46yo female with history of chronic back pain on Subutex, Depression/Anxiety presenting with two days of nausea with non-bloody/non-bilious vomiting, epigastric and RUQ abdominal pain as well as left sided chest pain. Symptoms began two days ago. No sick contacts. Her chest pain is located on the left chest. 7/10 in severity, sharp and stabbing. Pleuritic and positional - worse with laying flat and relieved with sitting upright. She has associated SOB as well as diaphoresis. Also with epigastric and RUQ abdominal pain, progressively worsening over the last two days. She has intermittent nausea, often after meals. Poor oral intake Also with occasional chills but denies fever, rigors, diarrhea. Upon arrival to the ER patient hypoxic to 85% on room air. She was placed on supplemental O2 by nasal cannula with improvement. Presently on 6L saturating 93%. Complaining of significant abdominal pain. Received Morphine 4mg IV with minimal improvement. Additional workup as below - elevated Ddimer as well as HS-trop x 1. EKG with diffuse TWI ER Course: Zofran, Zosyn, ASA, Morphine Principal Diagnosis acute cholecystitis Discharge Exam Constitutional WD/WN, vitals as above Respiratory normal respiratory effort, lungs clear to auscultation Cardiovascular RRR, no murmur, no edema Gastrointestinal (Abdomen) Inspection/Auscultation: normal bowel sounds Percussion/Palpation: + abdomen tender (RUQ without guarding or rebound tenderness) and abdomen soft; no guarding and abdomen not rigid Musculoskeletal no cyanosis or clubbing, extremities motor strength 5/5 Skin no rashes, warm and dry Neurologic moves all extremities and awake; not confused Psychiatric A+Ox3, euthymic affect Discharge Data Allergies Allergy/AdvReac Type Severity Reaction Status Date / Time No Known Allergies Allergy Verified 08/16/21 12:00 Consultations 09/24/21 06:10 ED Decision to Admit Stat 09/24/21 08:19 Consult Cardiology Routine Consult General Surgery Routine Procedures Performed Operation Date: 09/24/21 10:30 Actual Procedures p Cath, Left with Cors and Vent - Mario Gamino MD s Cineradiography w/Routine Exam - Mario Gamino MD Operation Date: 09/25/21 10:00 <No data on this case meets the specified criteria> Ordered Studies 09/24/21 04:16 CT angio chest PE protocol Stat 09/24/21 04:41 CT abd pelvis IV con only Stat 09/24/21 08:27 US liver Routine 09/24/21 09:52 CL Cath Imgs for PACS use only Routine Hospital Course (1) Acute cholecystitis: Afebrile. HD stable. Appears much improved today. - Continue IV Zosyn - Advance diet per surgery recommendations - Follow up with surgery on discharge for eventual cholecystectomy once stress induced cardiomyopathy resolved -recommend 7 days of antibiotics. -continue low fat diet. (2) Acute HFrEF (heart failure with reduced ejection fraction): Lasix 20mg IV given 09/24 Appears to be euvolemic currently Continue fluid restriction 1500ml Strict I&Os - output not being reported, daily weights - increased weight but given improved exam not overly concerning will discharge patient on PRN diuretics. Will have patient followup with cardio as an outpatient. recommend off work until next week. will recommend light duty. (3) Stress-induced cardiomyopathy: Continue carvedilol per cardiology recommendations Follow up with cardiology with repeat TTE as outpatient (4) Generalized anxiety disorder: Chronic. Stable -Continue Citalopram (5) Chronic pain: With acute pain - patient received Morphine in the ER with minimal improvement -Continue Subutex -Continue morphine for pain control VTE Prophylaxis - Low risk, SCDs Code - Full Total Time Total Time Spent Total Time Spent (In Minutes): 32 Discharge Plan Discharge Items Patient Disposition: Home - Self-Care Reason For Visit: CHEST PAIN, NAUSEA, VOMITING Discharge Diagnosis: heart failure Activity: Resume your previous activity Non-emergency contact: Primary Care Provider Call non-emergency contact if: you have any medication questions Follow-up/Referrals: Kash Paige MD, FACS [Physician] - Chloe Cuevas MD [Primary Care Provider] - 10/09/21 12:00 pm Diet: Heart Healthy and Low Fat Addtl Attending Provider Instructions: Will recommend lasix 40 mg as needed. When you come home, check your weight. This will be your dry weight. Each day please check your weight in the same circumstance as weight may fluctuate if you ate, went to the rest room. Recommend checking in the morning each day. If weight is 2-3 pounds above dry weight, take one tablet of lasix. Recommend followup with your PCP and cardio in 10 days or less. Recommend antibiotics for 1 more week. recommend followup with Gen Surgery within 1 week. Recommend low fat diet. Call your Primary Care doctor if any of the following symptoms or problems start or get worse: * Shortness of breath or difficulty breathing * Wake up at night short of breath * Chest pain * Cough * Swelling of your hands, feet, or legs * More fatigued or tired with your normal activity * Palpitations - sudden fast heart beats WEIGHT * Weigh yourself every morning after using the bathroom. * Use the same scale. * Wear the same amount of clothing. * Write your weight down on a chart. * Call your Primary Care doctor if you gain more than 2-3 pounds in 1-2 days. MEDICATIONS * Use this discharge instruction sheet for medication instructions. * Take your medications at the time your doctor ordered. * Do not skip a dose of your medicines. * If you miss a dose of medicine, take it as soon as possible, but DO NOT DOUBLE A DOSE. * Read your medicine information when you get home. * Know all of the side effects of your medicine. If in doubt, ask your pharmacist * Call your Primary Care doctor's office if you have any side effects. * Be sure all of your doctors know what medicine and herbs you take (including cold, flu, and herbal medicine). Take the following with you to your follow-up doctor appointments: * Weight Chart * Medication List * List of questions Do not drink excessive alcohol, beer or wine. Pending Studies at Discharge: No Stand-Alone Forms: [facility], Work/School Release, Smoking Cessation Medications and DC Order Prescriptions: New carvedilol 6.25 mg Tablet 6.25 mg PO BID Qty: 60 RF: 0 furosemide [Lasix] 40 mg tablet 40 mg PO DAILY PRN (Reason: weight gain) Qty: 10 RF: 0 amoxicillin-pot clavulanate 875-125 mg tablet 1 tab PO BID Qty: 14 RF: 0 Continued multivitamin Tablet 1 tab PO HS RF: 0 citalopram 20 mg tablet 20 mg PO HS RF: 0 buprenorphine-naloxone 8-2 mg tablet, sublingual 1.5 tab SUBLINGUAL QAM RF: 0 Discharge Orders: Discharge Order (Routine); Ordered 09/26/21 Ordered By: Marlon Moore Admission Data Admit Date/Time: 09/24/21 06:46 Attending Provider: Marlon Moore Admit Provider: Jenniffer Navarrete Primary Care Provider: Chloe Cuevas Other Providers: Jenniffer Navarrete ; Gt Ruff ; Kash Paige ; Bridgette Reeves Coding Level of Care Code D/C DAY MANAGEMENT >30 MINS Diagnoses Acute cholecystitis K81.0 Acute HFrEF (heart failure with reduced ejection fraction) I50.21 Stress-induced cardiomyopathy I51.81 Generalized anxiety disorder F41.1 Chronic pain G89.29 Time Spent (min) 55
--- NOTE | 2021-09-26 11:55 | Surgery Progress Note ---
Date of Service September 26, 2021 Assessment & Plan (1) Cholecystitis: Plan: Patient symptoms improving with conservative management WBC 8.6, pt afebrile. LFTs WNL She is tolerating a diet without worsening symptoms. Abdomen soft Due to cardiac status we have no plans for lap anita while in house. She may follow up with Dr. Paige in clinic in the next few weeks and we can discuss surgical planning at that time Admission and Anticipated Discharge Date Admission Date: September 24, 2021 Subjective Patient seen eating lunch. Says she is tolerating small meals without issues. No N/V. Passing flatus. No abdominal pain. Physical Exam Physical Exam: awake/alert, no acute distress Gastrointestinal (Abdomen): Percussion/Palpation: + abdomen tender (some mild RUQ pain) and abdomen soft Results & Data ([facility]) Vital Signs (Past 12 Hours) Vital Signs Temp Pulse Pulse Resp BP Pulse Ox 09/26/21 09:28 59 L 09/26/21 08:54 57 L 09/26/21 08:22 36.7 C 58 L 18 96/63 L 94 09/26/21 03:28 37.0 C 59 L 18 107/71 92 PG Care Time/CCT Total # of Minutes Spent Total Time Spent with Patient: Total time spent is greater than 50% in coordination of care (as documented) at patient's floor/unit and/or counseling patient: Coding Level of Care Code 02245 Subseq Hosp Care Lvl 1 Diagnoses Cholecystitis K81.9
--- NOTE | 2021-09-26 13:32 | XCELERA ---
[id number]
--- NOTE | 2021-09-26 14:16 | Cardiology Progress Note ---
Date of Service September 26, 2021 Assessment & Plan (1) Elevated troponin: (2) Stress-induced cardiomyopathy: Plan: 1. Stress-induced cardiomyopathy: Clinically she is doing well. She did have 1 run of SVT yesterday morning. No ventricular arrhythmias. She received 1 dose of diuretic as an inpatient but seems well compensated currently. She will be sent home on as needed diuretics. Will continue the carvedilol. Blood pressure too low to start lisinopril. He was seem reasonable to provide her with 10 days of systemic anticoagulation with Xarelto in order to prevent interventricular thrombus. This is based on her persistently low ejection fraction. I would expect her overall LV function to improve fairly rapidly in the next several days and weeks. She should follow-up in the cardiology clinic in the next 1-2 weeks for re-evaluation. Admission and Anticipated Discharge Date Admission Date: September 24, 2021 Subjective This morning the patient seems to be feeling better overall. We some mild discomfort in the right upper quadrant with palpation. She is tolerating more food. Her back pain appears to have improved. She was able ambulate around the gregory and felt fatigued but did not report overt dyspnea. No chest pain. Review of Systems Review of Systems: Per HPI Physical Exam Physical Exam: She is alert and oriented x3. Mood affect appear normal. She answered all questions appropriately. HEENT: Sclerae are anicteric. Pupils are equal and reactive to light and accommodation. Extraocular movements were intact. Neuro: Cranial nerves intact Lungs: Normal respiratory effort. Skin: There are no rashes noted on examination today. ENMT: Mallampati Class: III Respiratory: normal respiratory effort Cardiovascular: Rate/Rhythm: regular rhythm Results & Data ([facility]) Vital Signs (Past 12 Hours) Vital Signs Temp Pulse Pulse Resp BP Pulse Ox 09/26/21 13:12 36.6 C 59 L 18 107/74 97 09/26/21 12:12 36.6 C 59 L 18 107/74 97 09/26/21 09:28 59 L 09/26/21 08:54 57 L 09/26/21 08:22 36.7 C 58 L 18 96/63 L 94 09/26/21 03:28 37.0 C 59 L 18 107/71 92 Laboratory Results Abnormal Lab Results 09/26/21 09/26/21 06:40 06:40 WBC 8.65 RBC 4.16 L Hgb 13.4 Hct 39.5 MCV 95.0 MCH 32.2 MCHC 33.9 RDW Std Deviation 48.3 H RDW Coeff of Mark 14.0 Plt Count 250 MPV 10.2 Immature Gran % (Auto) 0.2 Neut % (Auto) 53.6 Lymph % (Auto) 31.3 [place] % (Auto) 13.4 Eos % (Auto) 1.2 Baso % (Auto) 0.3 Neut # (Auto) 4.63 Lymph # (Auto) 2.71 [place] # (Auto) 1.16 H Eos # (Auto) 0.10 Baso # (Auto) 0.03 Immature Gran # (Auto) 0.02 Sodium 137 Potassium 3.6 Chloride 102 Carbon Dioxide 26 Anion Gap 9 BUN 10 Creatinine 0.66 Est Cr Clr Drug Dosing 101.5 Est GFR ( Amer) 121.9 Est GFR (Non-Af Amer) 105.2 BUN/Creatinine Ratio 15.2 Glucose 103 H Calcium 9.1 Total Bilirubin 0.4 AST 39 ALT 42 Alkaline Phosphatase 72 Total Protein 5.9 L Albumin 3.6 Globulin 2.3 L Albumin/Globulin Ratio 1.6 Diagnostic Findings Repeat limited echocardiogram today reveals persistently low ejection fraction with previously noted wall motion abnormalities. No thrombus. PG Care Time/CCT Total # of Minutes Spent Total Time Spent with Patient: Total time spent is greater than 50% in coordination of care (as documented) at patient's floor/unit and/or counseling patient: Coding Level of Care Code 98781 Subseq Hosp Care Lvl 2 Diagnoses Elevated troponin R77.8 Stress-induced cardiomyopathy I51.81
[2021-09-27 10:16] LABS: 7-Aminoclonaz, Confirm NEGATIVE ng/mL (<25); Codeine Urine NEGATIVE ng/mL (<50); Hydro-Alp Ur, GC/MS NEGATIVE ng/mL (<25); Hydrocodone Urine NEGATIVE ng/mL (<50); Hydromor Urine NEGATIVE ng/mL (<50); Hydroxyethylflurazepam, Conf NEGATIVE ng/mL (<50); Hydroxymidazolam Ur, GC/MS 290 ng/mL (<50); Hydroxytriazolam NEGATIVE ng/mL (<50); Lorazepam, Ur GC/MS NEGATIVE ng/mL (<50); Marijuana Quant, GCMS Urine 241 ng/mL (<5); Morphine Urine 421 ng/mL (<50); Nordiazepam, Confirm NEGATIVE ng/mL (<50); Norhydrocodone Conf Ur NEGATIVE ng/mL (<50); Noroxycodone Urine NEGATIVE ng/mL (<50); Oxazepam Ur, GC/MS NEGATIVE ng/mL (<50); Oxycodone Urine NEGATIVE ng/mL (<50); Oxymorph Urine NEGATIVE ng/mL (<50); Temazepam, Confirm NEGATIVE ng/mL (<50)
== END 2021-09-26 16:00 | disposition home or self-care (01) | DRG 286 ==
LOC: ED 04:02 → 2S 06:46 → SUATTDRO 06:46 → 2S 08:48